=== PATIENT | female | born 1945 | race Two or more races ===

== ENCOUNTER 2018-01-06 07:18 | Outpatient (CLI) | payer OTHER | END 2018-01-06 07:28 | disposition home or self-care (01) | LOC: LAB 07:18 | DX: D64.89 Other specified anemias (principal); I10 Essential (primary) hypertension; E11.9 Type 2 diabetes mellitus without complications; E78.2 Mixed hyperlipidemia; E03.8 Other specified hypothyroidism ==

== ENCOUNTER 2018-05-09 06:48 | Outpatient (CLI) | payer OTHER | END 2018-05-09 06:54 | disposition home or self-care (01) | LOC: LAB 06:48 | DX: C73 Malignant neoplasm of thyroid gland (principal); E89.0 Postprocedural hypothyroidism ==

== ENCOUNTER 2018-05-09 07:52 | Outpatient (CLI) | payer OTHER | END 2018-05-09 10:19 | disposition home or self-care (01) | LOC: SONOGRAMA 07:52 | DX: C73 Malignant neoplasm of thyroid gland (principal) ==

== ENCOUNTER 2018-08-30 07:11 | Outpatient (CLI) | payer OTHER | END 2018-08-30 07:15 | disposition home or self-care (01) | LOC: LAB 07:11 | DX: D64.89 Other specified anemias (principal); E11.9 Type 2 diabetes mellitus without complications; E78.2 Mixed hyperlipidemia; I11.0 Hypertensive heart disease with heart failure; E03.8 Other specified hypothyroidism ==

== ENCOUNTER 2019-03-11 08:12 | Outpatient (CLI) | payer OTHER | END 2019-03-11 08:20 | disposition home or self-care (01) | LOC: LAB 08:12 | DX: C73 Malignant neoplasm of thyroid gland (principal); E89.0 Postprocedural hypothyroidism ==

== ENCOUNTER 2019-05-22 08:59 | Outpatient (CLI) | payer OTHER | END 2019-05-22 09:05 | disposition home or self-care (01) | LOC: LAB 08:59 | DX: C73 Malignant neoplasm of thyroid gland (principal); E89.0 Postprocedural hypothyroidism ==

== ENCOUNTER → 2019-05-28 | Outpatient (CLI) | payer OTHER | END | disposition home or self-care (01) | LOC: SONOGRAMA 09:06 → MAMO-SONO 09:15 | DX: C73 Malignant neoplasm of thyroid gland (principal) ==

== ENCOUNTER 2019-10-19 08:48 | Outpatient (CLI) | payer OTHER | END 2019-10-19 08:57 | disposition home or self-care (01) | LOC: LAB 08:48 | DX: D64.89 Other specified anemias (principal); E11.9 Type 2 diabetes mellitus without complications; E78.2 Mixed hyperlipidemia; I10 Essential (primary) hypertension; E03.8 Other specified hypothyroidism ==

== ENCOUNTER 2019-10-21 11:03 | Outpatient (CLI) | payer OTHER | END 2019-10-21 11:11 | disposition home or self-care (01) | LOC: MAMO-SONO 11:03 | DX: Z12.31 Encounter for screening mammogram for malignant neoplasm of breast (principal); Z87.898 Personal history of other specified conditions ==

== ENCOUNTER → 2020-03-09 08:28 | Outpatient (CLI) | payer OTHER | END | disposition home or self-care (01) | LOC: LAB 08:28 | PROVIDERS: ATTEND Internal Medicine Sports Medicine | DX: D64.89 Other specified anemias (principal); E11.9 Type 2 diabetes mellitus without complications; E78.2 Mixed hyperlipidemia; I10 Essential (primary) hypertension; E03.8 Other specified hypothyroidism ==

== ENCOUNTER 2020-04-07 08:30 | Inpatient (IN) | payer OTHER ==
[~2020-04-07] VITALS: Ht 149.9 cm; Wt 50.8 kg
[2020-04-07] MEDS ORDERED: VERELAN180 MG (09:50)
[2020-04-07] MEDS ORDERED: FOSINOPRIL PO (09:51)
[2020-04-07] MEDS ORDERED: CRESTOR10 MG PO (09:51)
[2020-04-07] MEDS ORDERED: SYNTHROID75 MCG PO (09:51)
[2020-04-07] MEDS ORDERED: SIMBRINZA 1%-0.28 ML OP (09:52)
[2020-04-07] MEDS ORDERED: OMEGA 3-6-9 11200 M1 PO (09:52)
[2020-04-11] MEDS ORDERED: FOSINOPRIL SODI40 MG PO (09:28)
[2020-04-13] MEDS ORDERED: OXYC1TAB9 PO (06:05)
[2020-04-13] MEDS ORDERED: INTEGRA PLUS C1 EACH PO (06:05)
[2020-04-13] MEDS ORDERED: XARELTO10 MG PO (06:05)
== END 2020-04-13 12:12 | DRG 470 ==
LOC: O/R 04-11 05:44 → SURH 04-11 05:44 → O/R 04-11 08:30 → SURH 04-11 08:30
PROVIDERS: ADMIT Orthopaedic Surgery Sports Medicine; ATTEND Orthopaedic Surgery Sports Medicine
PROC: 0SRD0J9 Replacement of Left Knee Joint with Synthetic Substitute, Cemented, Open Approach (ICD-10-PCS; principal; 2020-04-11 07:00)
DX: M17.12 Unilateral primary osteoarthritis, left knee (principal); I10 Essential (primary) hypertension

== ENCOUNTER 2020-06-23 14:29 | Emergency (ER) | payer OTHER ==
[~2020-06-23] VITALS: Ht 149.9 cm; Wt 46.3 kg
[~2020-06-23 14:29] MED LIST: CRESTOR10 MG PO; FOSINOPRIL PO; FOSINOPRIL SODI40 MG PO; INTEGRA PLUS C1 EACH PO; OMEGA 3-6-9 11200 M1 PO; OXYC1TAB9 PO; SIMBRINZA 1%-0.28 ML OP; SYNTHROID75 MCG PO; VERELAN180 MG; XARELTO10 MG PO
[2020-06-23] MEDS ORDERED: ELIQUIS5 MG PO (15:52)
[2020-06-23] MEDS ORDERED: PEPCID AC20 MG PO (15:52)
== END 2020-06-23 16:21 | disposition home or self-care (01) ==
LOC: ER 14:29
DX: I82.4Z2 Acute embolism and thrombosis of unspecified deep veins of left distal lower extremity (principal); M79.662 Pain in left lower leg

== ENCOUNTER 2020-08-30 09:19 | Outpatient (CLI) | payer OTHER ==
[~2020-08-30 09:19] MED LIST changes: +ELIQUIS5 MG PO; +PEPCID AC20 MG PO
== END 2020-08-30 09:24 | disposition home or self-care (01) ==
LOC: LAB 09:19
PROVIDERS: ATTEND Internal Medicine Sports Medicine
DX: D64.89 Other specified anemias (principal); E11.9 Type 2 diabetes mellitus without complications; E78.2 Mixed hyperlipidemia; I10 Essential (primary) hypertension; E03.8 Other specified hypothyroidism

== ENCOUNTER → 2021-02-21 08:45 | Outpatient (CLI) | payer OTHER | END | disposition home or self-care (01) | LOC: LAB 08:45 | PROVIDERS: ATTEND Internal Medicine Sports Medicine | DX: E78.2 Mixed hyperlipidemia (principal); D64.9 Anemia, unspecified; E11.9 Type 2 diabetes mellitus without complications; I10 Essential (primary) hypertension; E03.8 Other specified hypothyroidism ==

== ENCOUNTER 2021-05-12 12:55 | Outpatient (CLI) | payer OTHER | END 2021-05-12 13:05 | disposition home or self-care (01) | LOC: SONOGRAMA 12:55 → MAMO-SONO 13:45 | PROVIDERS: ATTEND Internal Medicine Sports Medicine | DX: C73 Malignant neoplasm of thyroid gland (principal) ==

== ENCOUNTER 2021-08-14 09:21 | Outpatient (CLI) | payer OTHER | END 2021-08-14 09:26 | disposition home or self-care (01) | LOC: LAB 09:21 | PROVIDERS: ATTEND Internal Medicine Sports Medicine | DX: C73 Malignant neoplasm of thyroid gland (principal); E89.0 Postprocedural hypothyroidism ==

== ENCOUNTER → 2021-11-20 07:41 | Outpatient (CLI) | payer OTHER | END | disposition home or self-care (01) | LOC: LAB 07:41 | PROVIDERS: ATTEND Internal Medicine Sports Medicine | DX: D64.9 Anemia, unspecified (principal); E11.9 Type 2 diabetes mellitus without complications; E78.2 Mixed hyperlipidemia; I10 Essential (primary) hypertension; E03.8 Other specified hypothyroidism ==

== ENCOUNTER → 2022-03-30 08:27 | Outpatient (CLI) | payer OTHER | END | disposition home or self-care (01) | LOC: LAB 08:27 | PROVIDERS: ATTEND Internal Medicine Sports Medicine | DX: E89.0 Postprocedural hypothyroidism (principal); C73 Malignant neoplasm of thyroid gland ==

== ENCOUNTER 2023-03-08 08:51 | Outpatient (CLI) | payer OTHER | END 2023-03-08 08:56 | disposition home or self-care (01) | LOC: MAMO-SONO 08:51 | PROVIDERS: ATTEND Internal Medicine Sports Medicine | DX: Z12.31 Encounter for screening mammogram for malignant neoplasm of breast (principal) ==

== ENCOUNTER 2023-04-19 09:49 | Outpatient (CLI) | payer OTHER | END 2023-04-19 09:50 | disposition home or self-care (01) | LOC: LAB 09:49 | PROVIDERS: ATTEND Internal Medicine Sports Medicine | DX: C73 Malignant neoplasm of thyroid gland (principal); E89.0 Postprocedural hypothyroidism ==

== ENCOUNTER 2023-04-19 10:07 | Outpatient (CLI) | payer OTHER | END 2023-04-19 10:15 | disposition home or self-care (01) | LOC: SONOGRAMA 10:07 | PROVIDERS: ATTEND Internal Medicine Sports Medicine | DX: C73 Malignant neoplasm of thyroid gland (principal) ==

== ENCOUNTER 2023-05-16 08:57 | Outpatient (CLI) | payer OTHER | END 2023-05-16 08:59 | disposition home or self-care (01) | LOC: SONOGRAMA 08:57 | PROVIDERS: ATTEND Pathology Anatomic Pathology & Clinical Pathology | DX: D34 Benign neoplasm of thyroid gland (principal) ==

== ENCOUNTER 2023-10-14 09:07 | Outpatient (CLI) | payer OTHER ==
[2023-10-14 10:03] LABS: PH,URINE 6.5 (5.0-8.0); URINE APPEARANCE Clear; URINE BILIRRUBIN Negative (NEGATIVE); URINE BLOOD Negative; URINE COLOR Yellow; URINE GLUCOSE Negative (NEGATIVE); URINE LEUKOCYTE Negative; URINE NITRATE Negative; URINE PROTEIN Negative (NEGATIVE); URINE UROBILINOGEN 0.2 E.U./dl
[2023-10-14 10:06] LABS: URINE BACTERIA 22.6 uL (0.0-1933)
[2023-10-14 10:21] LABS: URINE EPITHELIAL CELLS 0.9 uL (0.0-38.8); URINE RBC 0.8 uL (0.0-20.8)
[2023-10-14 10:47] LABS: HEMOGLOBIN 14.2 g/dL (12.0-15.00); MEAN CORPUSCULAR HEMOGLOBIN 27.4 pg (27.00-32.0); MEAN CORPUSCULAR HGB CONC 33.8 g/dl (32.0-36.0); PLATELET COUNT 312 K/uL (150-450); RED BLOOD COUNT 5.18 M/uL (4.00-6.00); RED CELL DISTRIBUTION WIDTH 15.4 % (11.5-14.5)
[2023-10-14 11:38] LABS: ALBUMIN 4.5 gm/dL (3.4-5.0); BILIRUBIN TOTAL 0.68 mg/dL (0.3-1.2); CALCIUM 10.2 mg/dL (8.5-10.1); CHOL HDL RATIO 3.7 (0-5.0); CREATININE SERUM 0.98 mg/dL (0.55-1.02); GFR 54.75; GLOBULINA 3.5 G/DL (2.4-3.5); POTASSIUM 5.67 mEq/L (3.5-5.1)
[2023-10-14 11:41] LABS: T4 FREE 1.95 NG/ML (0.76-1.46); TSH 0.281 uIU/mL (0.358-3.74)
== END 2023-10-14 09:08 | disposition home or self-care (01) ==
LOC: LAB 09:07
PROVIDERS: ATTEND Internal Medicine Sports Medicine
DX: D64.9 Anemia, unspecified (principal); E11.9 Type 2 diabetes mellitus without complications; E78.2 Mixed hyperlipidemia; I10 Essential (primary) hypertension; E03.8 Other specified hypothyroidism

== ENCOUNTER 2024-05-27 08:56 | Outpatient (CLI) | payer OTHER | END 2024-05-27 09:02 | disposition home or self-care (01) | LOC: MAMO-SONO 08:56 | PROVIDERS: ATTEND Internal Medicine Sports Medicine | DX: Z12.39 Encounter for other screening for malignant neoplasm of breast (principal); Z12.31 Encounter for screening mammogram for malignant neoplasm of breast ==

== ENCOUNTER 2024-06-18 08:28 | Outpatient (CLI) | payer OTHER | END 2024-06-18 08:29 | disposition home or self-care (01) | LOC: NUCLEAR 08:28 | DX: C91.10 Chronic lymphocytic leukemia of B-cell type not having achieved remission (principal) | CPT/HCPCS: 78816; A9552 ==